=== PATIENT | male | born 1980 | race Caucasian/White ===

== ENCOUNTER 2020-09-23 17:08 | Emergency (ER) | payer SELFPAY ==
[~2020-09-23] VITALS: Ht 167.6 cm; Wt 100.0 kg
[2020-09-23] MEDS ORDERED: CLOZ100T32 PO ×2 (17:42)
[2020-09-23] MEDS ORDERED: ClonazePAM 1 MG TABLET PO ONE (20:45)
[2020-09-23 21:36] VITALS: BP 147/82
== END 2020-09-23 21:37 | disposition home or self-care (01) ==
LOC: EMS 17:10
DX: F41.9 Anxiety disorder, unspecified (principal); F20.9 Schizophrenia, unspecified; F17.210 Nicotine dependence, cigarettes, uncomplicated
CPT/HCPCS: Z7502; Z7610